=== PATIENT | female | born 1960 | race Caucasian/White ===

== ENCOUNTER 2016-10-24 12:30 | Emergency (ER) | payer OTHER ==
[~2016-10-24] VITALS: Ht 160 cm; Wt 83.0 kg
[~2016-10-24 12:30] MED LIST: ATIVAN1 M1 PO; BACTRIM1 TAB OR; CELEXA40 MG OR; EFFEXOR37.5 MG OR; FIBER CON625 MG OR; HYDROCO/APAP1 T13; LAMICTAL25 M2 PO; LEVOTHYROXIN50 MC1 PO; LISINOPRIL10 MG OR; LORTAB 10 OR; MIRALAX3350 NF OR; PREMARIN0.3 MG OR; PROVENTIL HFA IN; SEROQUEL200 MG OR; SEROQUEL400 MG OR; SEROQUEL400 MG PO; SIMVASTATIN20 MG OR; SIMVASTATIN40 MG PO; TRAZODONE HCL100 MG PO; VITAMIN C500 M1 OR; WELLBUTRIN SR150 M1 PO
[2016-10-24] MEDS ORDERED: REXULTI2 MG PO (12:48)
[2016-10-24] MEDS ORDERED: SENNA-TABS8.6 MG PO (12:49)
[2016-10-24] MEDS ORDERED: GABAPENTIN100 MG PO (12:49)
[2016-10-24] MEDS ORDERED: LISINOPRIL10 MG PO (12:49)
[2016-10-24] MEDS ORDERED: AMBIEN5 MG PO (12:50)
[2016-10-24] MEDS ORDERED: CYCLOBENZAPR10 MG PO (12:50)
[2016-10-24 14:36] VITALS: BP 148/69
== END 2016-10-24 14:47 | disposition home or self-care (01) | DRG 379 ==
LOC: ED 12:30
DX: K62.5 Hemorrhage of anus and rectum (principal); Z98.890 Other specified postprocedural states

== ENCOUNTER 2016-12-15 06:16 | Day surgery (SDC) | payer OTHER ==
[~2016-12-15] VITALS: Ht 160 cm; Wt 83.9 kg
[~2016-12-15 06:16] MED LIST changes: +AMBIEN5 MG PO; +CYCLOBENZAPR10 MG PO; +GABAPENTIN100 MG PO; +HYDROCODONE/ACE1 TAB PO; +LISINOPRIL10 MG PO; +OMEPRAZOLE20 M2 PO; +REXULTI2 MG PO; +SENNA-TABS8.6 MG PO; +VITAMIN B-12500 MCG PO
[2016-12-15] MEDS ORDERED: HYDROCODONE/ACE1 TAB PO (08:43)
[2016-12-15 11:20] VITALS: BP 122/64
== END 2016-12-15 08:55 | disposition home or self-care (01) | DRG 552 ==
LOC: ORM 06:16
PROVIDERS: ATTEND Anesthesiology Pain Medicine
PROC: 3E0T3BZ Introduction of Anesthetic Agent into Peripheral Nerves and Plexi, Percutaneous Approach (ICD-10-PCS; principal; 2016-12-15)
PROC: 3E0T33Z Introduction of Anti-inflammatory into Peripheral Nerves and Plexi, Percutaneous Approach (ICD-10-PCS; 2016-12-15)
DX: M54.2 Cervicalgia (principal); M12.9 Arthropathy, unspecified; M54.12 Radiculopathy, cervical region; M79.601 Pain in right arm; M79.602 Pain in left arm

== ENCOUNTER 2017-03-26 15:24 | Emergency (ER) | payer MEDICAID ==
[~2017-03-26] VITALS: Ht 160 cm; Wt 84.0 kg
[2017-03-26] MEDS ORDERED: LISINOP/HCTZ1 TAB PO (15:56)
[2017-03-26] MEDS ORDERED: HYDROCO/APAP1 TA9 PO (15:58)
[2017-03-26] MEDS ORDERED: VALTREX1 GM PO (16:05)
[2017-03-26 16:10] VITALS: BP 155/84
== END 2017-03-26 16:16 | disposition home or self-care (01) | DRG 607 ==
LOC: ED 15:24
DX: R21 Rash and other nonspecific skin eruption (principal); M25.572 Pain in left ankle and joints of left foot

== ENCOUNTER 2017-09-05 20:37 | Emergency (ER) | payer MEDICAID ==
[~2017-09-05] VITALS: Ht 160 cm; Wt 92.2 kg
[~2017-09-05 20:37] MED LIST changes: +HYDROCO/APAP1 TA9 PO; +LISINOP/HCTZ1 TAB PO; +VALTREX1 GM PO
[2017-09-05 21:49] LABS: URINE BILIRUBIN - DIPSTICK NEGATIVE (NEGATIVE); URINE BLOOD DIPSTICK TRACE-INTACT (NEGATIVE); URINE COLOR YELLOW; URINE GLUCOSE - DIPSTICK NEGATIVE (NEGATIVE); URINE KETONE NEGATIVE (NEGATIVE); URINE LEUK ESTERASE NEGATIVE (NEGATIVE); URINE NITRITE - DIPSTICK NEGATIVE (Negative); URINE PH 5.5 (4.5-8.0); URINE PROTEIN - DIPSTICK NEGATIVE (NEG-TRACE); URINE SPECIFIC GRAVITY >=1.030; URINE UROBILINOGEN - DIPSTICK 0.2 E.U./dL (0.2)
[2017-09-05 21:50] LABS: URINE CLARITY CLEAR
[2017-09-05 22:26] LABS: HEMATOCRIT 38.5 % (37.0-47.0); HEMOGLOBIN 12.4 g/dl (12.0-16.0); IMMATURE GRANULOCYTES 0.3 % (0.0-1.0); MEAN CELL VOLUME 94.4 fL CALC (80.0-100.0); MEAN CORPUSCULAR HGB 30.4 pG CALC (26.0-32.0); MEAN CORPUSCULAR HGB CONC 32.2 g/L CALC (32.0-36.0); NEUT# 7.65 thou/uL (2.00-7.15); RED BLOOD COUNT 4.08 mill/uL (4.20-5.60); RED CELL DISTRI WIDTH 14.2 % (11.5-15.5)
[2017-09-05 22:53] LABS: ALBUMIN 4.2 g/dL (3.2-5.0); ALKALINE PHOSPHATASE 100 u/l (38-126); AMYLASE 45 u/l (30-110); BILIRUBIN, TOTAL 0.3 mg/dL (0.0-1.4); BUN 14 mg/dL (7-17); BUN/CREATININE RATIO 18 (12-20 (CALC)); CARBON DIOXIDE 25 mmol/l (22-30); CHLORIDE 107 mmol/l (95-108); CREATININE 0.8 mg/dL (0.5-1.0); GFR > 60 ML/MIN (>=60 (CALC)); GFR FOR AFR.AMER. > 60 ML/MIN (>=60 (CALC)); LIPASE 46 u/l (23-300); POTASSIUM 3.7 mmol/l (3.5-5.1); SGOT/AST 36 u/l (14-36); SGPT/ALT 59 u/l (9-52); TOTAL PROTEIN 7.5 g/dL (6.3-8.2)
[2017-09-05 23:06] LABS: ANION GAP 17 (6-22 (CALC)); SODIUM 145 mmol/l (137-146)
[2017-09-05] MEDS ORDERED: TORADOL PO (23:15)
[2017-09-05 23:42] VITALS: BP 149/81
== END 2017-09-05 23:43 | disposition home or self-care (01) | DRG 206 ==
LOC: ED 20:37
PROVIDERS: Family Medicine
DX: M94.0 Chondrocostal junction syndrome [Tietze] (principal); F17.210 Nicotine dependence, cigarettes, uncomplicated; I10 Essential (primary) hypertension; R10.12 Left upper quadrant pain

== ENCOUNTER 2018-03-20 11:55 | Emergency (ER) | payer MEDICAID ==
[~2018-03-20] VITALS: Ht 160 cm; Wt 91.0 kg
[~2018-03-20 11:55] MED LIST changes: +TORADOL PO
[2018-03-20 13:07] VITALS: BP 155/93
== END 2018-03-20 13:16 | disposition home or self-care (01) ==
LOC: ED 11:55
DX: B34.9 Viral infection, unspecified (principal); I10 Essential (primary) hypertension; F32.9 Major depressive disorder, single episode, unspecified; E07.9 Disorder of thyroid, unspecified; G89.29 Other chronic pain; M54.2 Cervicalgia; F17.210 Nicotine dependence, cigarettes, uncomplicated; R05 Cough; R09.81 Nasal congestion; R06.7 Sneezing; R49.1 Aphonia

== ENCOUNTER 2018-05-16 15:44 | Emergency (ER) | payer MEDICAID ==
[~2018-05-16] VITALS: Ht 160 cm; Wt 90.0 kg
[~2018-05-16 15:44] MED LIST changes: -SEROQUEL400 MG OR
[2018-05-16 18:19] LABS: HEMATOCRIT 40.4 % (37.0-47.0); IMMATURE GRANULOCYTES 0.4 % (0.0-5.0); MEAN CELL VOLUME 97.1 fL CALC (80.0-100.0); MEAN CORPUSCULAR HGB 31.3 pG CALC (26.0-32.0); MEAN CORPUSCULAR HGB CONC 32.2 g/L CALC (32.0-36.0); NEUT# 6.26 thou/uL (2.00-7.15); RED BLOOD COUNT 4.16 mill/uL (4.20-5.60); RED CELL DISTRI WIDTH 14.2 % (11.5-15.5)
[2018-05-16 18:30] LABS: ANION GAP 14 (6-22 (CALC)); BUN 11 mg/dL (7-17); BUN/CREATININE RATIO 19 (12-20 (CALC)); CARBON DIOXIDE 28 mmol/l (22-30); CHLORIDE 104 mmol/l (95-108); CREATININE 0.6 mg/dL (0.5-1.0); GFR > 60 ML/MIN (>=60 (CALC)); GFR FOR AFR.AMER. > 60 ML/MIN (>=60 (CALC)); POTASSIUM 3.5 mmol/l (3.5-5.1); SODIUM 142 mmol/l (137-146)
[2018-05-16] MEDS ORDERED: SEROQUEL XR200 MG PO (19:01)
[2018-05-16 22:00] VITALS: BP 145/60
== END 2018-05-16 22:05 ==
LOC: ED 15:44
PROVIDERS: Family Medicine
DX: G97.1 Other reaction to spinal and lumbar puncture (principal); I10 Essential (primary) hypertension; F32.9 Major depressive disorder, single episode, unspecified; G89.29 Other chronic pain; M54.2 Cervicalgia; F17.210 Nicotine dependence, cigarettes, uncomplicated; Y84.4 Aspiration of fluid as the cause of abnormal reaction of the patient, or of later complication, without mention of misadventure at the time of the procedure
CPT/HCPCS: J0131

== ENCOUNTER 2018-07-01 14:19 | Emergency (ER) | payer MEDICAID ==
[~2018-07-01] VITALS: Ht 160 cm; Wt 92.0 kg
[~2018-07-01 14:19] MED LIST changes: +SEROQUEL XR200 MG PO
[2018-07-01] MEDS ORDERED: HYDROCO/APAP1 T13 PO (14:39)
[2018-07-01 15:39] LABS: HEMATOCRIT 43.3 % (37.0-47.0); HEMOGLOBIN 13.7 g/dl (12.0-16.0); IMMATURE GRANULOCYTES 0.2 % (0.0-5.0); MEAN CORPUSCULAR HGB CONC 31.6 g/L CALC (32.0-36.0); NEUT# 6.18 thou/uL (2.00-7.15); RED BLOOD COUNT 4.42 mill/uL (4.20-5.60); RED CELL DISTRI WIDTH 13.9 % (11.5-15.5)
[2018-07-01 16:31] LABS: ALBUMIN 4.1 g/dL (3.2-5.0); ALKALINE PHOSPHATASE 93 u/l (38-126); ANION GAP 14 (6-22 (CALC)); BILIRUBIN, TOTAL 0.4 mg/dL (0.0-1.4); BUN 17 mg/dL (7-17); BUN/CREATININE RATIO 31 (12-20 (CALC)); CARBON DIOXIDE 24 mmol/l (22-30); CHLORIDE 103 mmol/l (95-108); CREATININE 0.6 mg/dL (0.5-1.0); GFR > 60 ML/MIN (>=60 (CALC)); GFR FOR AFR.AMER. > 60 ML/MIN (>=60 (CALC)); POTASSIUM 4.1 mmol/l (3.5-5.1); SGOT/AST 28 u/l (14-36); SODIUM 137 mmol/l (137-146); TOTAL PROTEIN 6.8 g/dL (6.3-8.2)
[2018-07-01] MEDS ORDERED: DECADRON2 MG PO (17:53)
[2018-07-01] MEDS ORDERED: VICODIN HP1 TA1 PO (17:53)
[2018-07-01 17:56] VITALS: BP 144/76
== END 2018-07-01 18:14 | disposition home or self-care (01) ==
LOC: ED 14:19
PROVIDERS: Emergency Medicine
DX: G89.18 Other acute postprocedural pain (principal); M54.2 Cervicalgia; M79.602 Pain in left arm; M79.601 Pain in right arm; I10 Essential (primary) hypertension; F32.9 Major depressive disorder, single episode, unspecified; F17.210 Nicotine dependence, cigarettes, uncomplicated
CPT/HCPCS: Q9967

== ENCOUNTER → 2018-07-10 | Outpatient (REF) | payer MEDICAID ==
[~2018-07-10] MED LIST changes: +DECADRON2 MG PO; +HYDROCO/APAP1 T13 PO; +VICODIN HP1 TA1 PO
== END | disposition home or self-care (01) ==
LOC: DI 11:38
PROVIDERS: ATTEND Neurological Surgery
DX: M54.12 Radiculopathy, cervical region (principal)

== ENCOUNTER 2018-11-28 11:51 | Emergency (ER) | payer MEDICARE, OTHER ==
[~2018-11-28] VITALS: Ht 160 cm; Wt 87.3 kg
[2018-11-28 13:11] VITALS: BP 132/69
== END 2018-11-28 13:11 | disposition home or self-care (01) ==
LOC: ED 11:51
DX: S93.402A Sprain of unspecified ligament of left ankle, initial encounter (principal); I10 Essential (primary) hypertension; F17.200 Nicotine dependence, unspecified, uncomplicated; X50.0XXA Overexertion from strenuous movement or load, initial encounter; Y93.89 Activity, other specified

== ENCOUNTER 2019-01-13 19:54 | Emergency (ER) | payer MEDICARE ==
[~2019-01-13] VITALS: Ht 160 cm; Wt 86.0 kg
[2019-01-13] MEDS ORDERED: GENTAMICIN0.3 % OS (22:07)
[2019-01-13 23:00] VITALS: BP 162/72
== END 2019-01-13 23:00 | disposition home or self-care (01) ==
LOC: ED 19:54
DX: H10.9 Unspecified conjunctivitis (principal); H57.12 Ocular pain, left eye; I10 Essential (primary) hypertension; F17.210 Nicotine dependence, cigarettes, uncomplicated

== ENCOUNTER 2019-01-15 07:37 | Emergency (ER) | payer MEDICARE ==
[~2019-01-15] VITALS: Ht 160 cm; Wt 80.0 kg
[~2019-01-15 07:37] MED LIST changes: +GENTAMICIN0.3 % OS
[2019-01-15] MEDS ORDERED: (None)3.5 GM OU ×2 (08:04)
[2019-01-15 08:09] VITALS: BP 128/63
== END 2019-01-15 08:07 | disposition home or self-care (01) ==
LOC: ED 07:37
DX: H10.9 Unspecified conjunctivitis (principal); T15.92XA Foreign body on external eye, part unspecified, left eye, initial encounter; I10 Essential (primary) hypertension; F17.200 Nicotine dependence, unspecified, uncomplicated; X58.XXXA Exposure to other specified factors, initial encounter

== ENCOUNTER 2020-11-13 22:48 | Emergency (ER) | payer MEDICARE ==
[~2020-11-13] VITALS: Ht 160 cm; Wt 85.0 kg
[~2020-11-13 22:48] MED LIST changes: +(None)3.5 GM OU; +ALBUTEROL SUL0.083 % IN; +B121000 MC1 PO; +CLARITIN-D1 TA2 PO; +CROMOLYN S5.2 MG/ACT; +D3 HIGH POT5000 UNIT; +DEXAMETHASON2 MG PO; +DIAZEPAM5 MG PO; +ESCITALOPRAM OXA5 MG PO; +FLUOXETINE20 MG PO; +LEVOCETIRIZINE D5 MG PO; +MONTELUKAST SOD10 MG PO; +OMEPRAZOLE20 MG PO; +OXYCODO-APAP1 TA2 PO; +PERCOCET 10/31 COMBO PO; +PRAVASTATIN SOD20 MG PO; +PREGABALIN50 MG PO; +SPIRONOLACT25 MG PO; +VITAMIN C1000 MG PO; +VITAMIN D3400 UNI2 PO; +ZINC30 M2 PO; +ZINC50 M1 PO; +ZOFRAN4 M1 PO; +ZOLPIDEM ER12.5 MG PO
[2020-11-14 00:29] LABS: HEMATOCRIT 42.6 % (37.0-47.0); HEMOGLOBIN 13.7 g/dl (12.0-16.0); IMMATURE GRANULOCYTES 0.1 % (0.0-5.0); MEAN CELL VOLUME 90.8 fL CALC (80.0-100.0); MEAN CORPUSCULAR HGB 29.2 pG CALC (26.0-32.0); MEAN CORPUSCULAR HGB CONC 32.2 g/dL CAL (32.0-36.0); NEUT# 8.48 thou/uL (2.00-7.15); RED BLOOD COUNT 4.69 mill/uL (4.20-5.60); RED CELL DISTRI WIDTH 12.9 % (11.5-15.5)
[2020-11-14 00:41] LABS: ALBUMIN 4.2 g/dL (3.2-5.0); ALKALINE PHOSPHATASE 92 u/l (38-126); BUN 19 mg/dL (7-17); BUN/CREATININE RATIO 31 (12-20 (CALC)); CHLORIDE 105 mmol/l (95-108); CREATININE 0.6 mg/dL (0.5-1.0); ETHYL ALCOHOL 0 mg/dl (0-30); GFR > 60 ML/MIN (>=60 (CALC)); GFR FOR AFR.AMER. > 60 ML/MIN (>=60 (CALC)); POTASSIUM 4.1 mmol/l (3.5-5.1); SGOT/AST 19 u/l (14-36); SODIUM 138 mmol/l (137-146); TOTAL PROTEIN 7.8 g/dL (6.3-8.2)
[2020-11-14 00:49] LABS: URINE BILIRUBIN - DIPSTICK NEGATIVE (NEGATIVE); URINE BLOOD DIPSTICK TRACE-INTACT (NEGATIVE); URINE COLOR YELLOW; URINE GLUCOSE - DIPSTICK NEGATIVE (NEGATIVE); URINE KETONE NEGATIVE (NEGATIVE); URINE LEUK ESTERASE NEGATIVE (NEGATIVE); URINE NITRITE - DIPSTICK NEGATIVE (Negative); URINE PROTEIN - DIPSTICK TRACE mg/dL (NEG-TRACE); URINE SPECIFIC GRAVITY 1.025; URINE UROBILINOGEN - DIPSTICK 0.2 E.U./dL (0.2)
[2020-11-14 00:55] LABS: ANION GAP 14 (6-22 (CALC)); BILIRUBIN, TOTAL 0.2 mg/dL (0.0-1.4); CARBON DIOXIDE 23 mmol/l (22-30)
[2020-11-14 01:37] VITALS: BP 169/73
== END 2020-11-14 01:42 | disposition designated cancer center or children's hospital (05) ==
LOC: ED 22:48
PROVIDERS: Emergency Medicine
DX: F32.9 Major depressive disorder, single episode, unspecified (principal); I10 Essential (primary) hypertension; F17.200 Nicotine dependence, unspecified, uncomplicated; Z91.5 Personal history of self-harm; Z73.3 Stress, not elsewhere classified

== ENCOUNTER 2021-05-23 11:32 | Emergency (ER) | payer MEDICARE ==
[~2021-05-23] VITALS: Ht 160 cm; Wt 82.0 kg
[2021-05-23] MEDS ORDERED: TESSALON PERLE100 MG PO (13:09)
[2021-05-23] MEDS ORDERED: ZPAK PO (13:09)
[2021-05-23 14:13] VITALS: BP 206/81
== END 2021-05-23 14:14 | disposition home or self-care (01) ==
LOC: ED 11:32
DX: U07.1 COVID-19 (principal); J40 Bronchitis, not specified as acute or chronic; I10 Essential (primary) hypertension; F17.210 Nicotine dependence, cigarettes, uncomplicated

== ENCOUNTER 2021-07-14 09:50 | Day surgery (SDC) | payer MEDICARE ==
[~2021-07-14] VITALS: Ht 160 cm; Wt 80.3 kg
[~2021-07-14 09:50] MED LIST changes: +ALBUTEROL1.25 MG/3; +ALLERGY RELF10 M3 PO; +AMBIEN CR12.5 MG PO; +BUSPIRONE5 MG PO; +CALCIUM500 M5 PO; +EUTHYROX50 MCG; +FLONASE AL50 MCG/ACT; +IS-ZC 50 50 MG1 TAB PO; +KETOCONAZOLE21 EX; +LEXAPRO10 MG PO; +MELOXICAM15 MG PO; +NORVASC5 M1 PO; +OMEPRAZOLE DR20 MG PO; +TESSALON PERLE100 MG PO; +VITAMIN C500 MG PO; +ZPAK PO; +ZYRTEC10 M3 PO; +[UNRECOGNIZED DRUG - OTHER] PO
[2021-07-14] MEDS ORDERED: PERCOCET 5/321 COMBO PO (12:13)
[2021-07-14 13:43] VITALS: BP 165/70
== END 2021-07-14 13:45 | disposition home or self-care (01) ==
LOC: ENDO 09:50
PROVIDERS: ATTEND Surgery
PROC: 0DJD8ZZ Inspection of Lower Intestinal Tract, Via Natural or Artificial Opening Endoscopic (ICD-10-PCS; principal; 2021-07-14)
PROC: 0DJ08ZZ Inspection of Upper Intestinal Tract, Via Natural or Artificial Opening Endoscopic (ICD-10-PCS; 2021-07-14)
PROC: 06BY3ZC Excision of Hemorrhoidal Plexus, Percutaneous Approach (ICD-10-PCS; 2021-07-14)
PROC: 0DBQXZZ Excision of Anus, External Approach (ICD-10-PCS; 2021-07-14)
DX: K64.8 Other hemorrhoids (principal); K64.4 Residual hemorrhoidal skin tags; K57.30 Diverticulosis of large intestine without perforation or abscess without bleeding; K44.9 Diaphragmatic hernia without obstruction or gangrene; I10 Essential (primary) hypertension; J43.9 Emphysema, unspecified
CPT/HCPCS: C9290

== ENCOUNTER 2021-07-16 10:52 | Emergency (ER) | payer MEDICARE ==
[~2021-07-16] VITALS: Ht 160 cm; Wt 77.0 kg
[~2021-07-16 10:52] MED LIST changes: +PERCOCET 5/321 COMBO PO
[2021-07-16] MEDS ORDERED: ALBUTEROL SUL0.083 % IN (14:21)
[2021-07-16] MEDS ORDERED: FLONASE AL50 MCG/ACT IN (14:24)
[2021-07-16] MEDS ORDERED: TESSALON PERLE100 MG PO (18:05)
[2021-07-16] MEDS ORDERED: PREDNISONE50 MG PO (18:05)
[2021-07-16 18:13] VITALS: BP 158/74
== END 2021-07-16 18:30 | disposition home or self-care (01) ==
LOC: ED 10:52
DX: J06.9 Acute upper respiratory infection, unspecified (principal); I10 Essential (primary) hypertension; F17.210 Nicotine dependence, cigarettes, uncomplicated; Z86.16 Personal history of COVID-19; Z20.822 Contact with and (suspected) exposure to COVID-19

== ENCOUNTER 2021-09-04 10:25 | Emergency (ER) | payer MEDICARE ==
[2021-09-04] VITALS (10 sets, daily range): BP systolic 124–158; BP diastolic 62–113
[~2021-09-04] VITALS: Ht 160 cm; Wt 81.0 kg
[~2021-09-04 10:25] MED LIST changes: +FLONASE AL50 MCG/ACT IN; +PREDNISONE50 MG PO
[2021-09-04 11:18] LABS: HEMATOCRIT 39.1 % (37.0-47.0); HEMOGLOBIN 12.4 g/dl (12.0-16.0); IMMATURE GRANULOCYTES 0.2 % (0.0-5.0); MEAN CELL VOLUME 95.4 fL CALC (80.0-100.0); MEAN CORPUSCULAR HGB 30.2 pG CALC (26.0-32.0); MEAN CORPUSCULAR HGB CONC 31.7 g/dL CAL (32.0-36.0); NEUT# 10.25 thou/uL (2.00-7.15); RED BLOOD COUNT 4.1 mill/uL (4.20-5.60); RED CELL DISTRI WIDTH 13.2 % (11.5-15.5)
[2021-09-04] MEDS ORDERED: AMOX/K CLAV875 M1 PO (11:37)
[2021-09-04 11:44] LABS: ALKALINE PHOSPHATASE 100 u/l (38-126); ANION GAP 15 (6-22 (CALC)); BUN 11 mg/dL (7-17); BUN/CREATININE RATIO 22 (12-20 (CALC)); CARBON DIOXIDE 22 mmol/l (22-30); CHLORIDE 108 mmol/l (95-108); CREATININE 0.5 mg/dL (0.5-1.0); GFR > 60 ML/MIN (>=60 (CALC)); GFR FOR AFR.AMER. > 60 ML/MIN (>=60 (CALC)); POTASSIUM 4.6 mmol/l (3.5-5.1); SGOT/AST 28 u/l (14-36); SODIUM 140 mmol/l (137-146); TOTAL PROTEIN 7.2 g/dL (6.3-8.2)
[2021-09-04] MEDS ORDERED: BUSPAR5 MG PO (11:44)
[2021-09-04] MEDS ORDERED: PREDNISONE50 MG PO (12:06)
[2021-09-04] MEDS ORDERED: ZPAK PO ×2 (12:06→14:19)
[2021-09-05] MEDS ORDERED: VENTOLIN HFA IN (09:27)
[2021-09-05] MEDS ORDERED: PERCOCET 5/321 COMBO PO (09:29)
[2021-09-05] MEDS ORDERED: DOCUSATE CAL240 MG PO (09:33)
[2021-09-08] MEDS ORDERED: PREDNISONE10 MG PO (09:10)
[2021-09-08] MEDS ORDERED: LEVAQUIN750 M1 PO (09:10)
[2021-09-08] MEDS ORDERED: ROBITUSSIN AC10 ML PO (09:11)
== END 2021-09-04 15:05 | disposition left against medical advice (07) ==
LOC: ED 10:25
PROVIDERS: Family Medicine
DX: J18.9 Pneumonia, unspecified organism (principal); I10 Essential (primary) hypertension; E66.9 Obesity, unspecified; F17.210 Nicotine dependence, cigarettes, uncomplicated; Z91.19 Patient's noncompliance with other medical treatment and regimen; Z20.822 Contact with and (suspected) exposure to COVID-19
CPT/HCPCS: Q9967

== ENCOUNTER 2021-10-08 06:58 | Observation (INO) | payer MEDICARE ==
[~2021-10-08] VITALS: Ht 160 cm; Wt 78.0 kg
[2021-10-08] VITALS (7 sets, daily range): BP systolic 114–136; BP diastolic 53–84
[~2021-10-08 06:58] MED LIST changes: +AIRBORNE IMMUNE PO; +ALIVE WOMENS 501 CHW PO; +AMOX/K CLAV875 M1 PO; +BUSPAR5 MG PO; +DOCUSATE CAL240 MG PO; +LEVAQUIN750 M1 PO; +PREDNISONE10 MG PO; +ROBITUSSIN AC10 ML PO; +VENTOLIN HFA IN; +ZINC50 MG PO
[2021-10-08] MEDS ORDERED: SPIRIVA HANDIHALER IN (07:31)
--- NOTE | 2021-10-08 11:55 | NUR ---
RECEIVE REPORT FROM JANES OR NURSE. PATIENT POST LAPAROSCOPY HERNIA REPAIR PROCEDURE. PATIENT ALERT AND ORIENTED X3. WITH OXIGEN 2L NASAL CANNULA. PATIENT RECEIVE PAIN MEDICATIONS BEFORE COME BE HERE. 11:00 AM. PATIENT WITH SURGICAL AREA CLEAN NO BLEDDING AT THIS TIME. PATIENT IS EDUCATED ABIUD MEDICATIONS, ADMISSION AND NURSING PLAN FOR TODAY. PATIENT REFER UNDERSTAND. OR ORDERS IS DONE.
--- NOTE | 2021-10-08 20:00 | NUR ---
PT IN BED AWAKE, GOT UP TO USE THE BEDSIDE COMMODE, WENT BACK TO BED, IN BED RESTING, NO DISTRESS NOTED, SOME PAIN WITH MOVEMENT, BED IN LOW POSITION, CALL LIGHT IN REACH
--- NOTE | 2021-10-09 01:34 | NUR ---
PT IN BED RESTING, PT WAS UP WALKING THE HALLS WITH NURSE USING A WALKER TO HELP WITH GAS PAINS, PT STATES SHE IS HAVING PAIN WAS GIVEN MORPHINE, PT NOW IN BED RESTING, BED IN LOW POSITION, CALL LIGHT IN REACH, PT STATES SHE DID PASS SOME GAS, USED BEDSIDE COMMODE WHILE UP.
[2021-10-09 03:54] VITALS: BP 124/44
--- NOTE | 2021-10-09 05:44 | NUR ---
pt in bed awake, pt still having gas pains, but is passing gas, no bm overnight, pt is voiding, bed in low position, call light in reach
--- NOTE | 2021-10-09 07:00 | NUR ---
RECEIVE REPORT FROM HILDA STEIN.
[2021-10-09 07:14] VITALS: BP 121/54
--- NOTE | 2021-10-09 08:00 | NUR ---
PATIENT ALERT AND ORIENTED X3. PATIENT RESTING IN BED REFER PAIN AT THIS TIME. MEDICATION FOR PAIN DONE. PATIENT IS EDUCATED ABOUD MEDICATIONS, DIET AND NURSING PLAN FOR TODAY. PATIENT REFER UNDERSTAND.
[2021-10-09 10:56] VITALS: BP 115/53
--- NOTE | 2021-10-09 12:00 | NUR ---
PATIENT RESTING IN THE CHAIR. STABLE AT THIS TIME.
[2021-10-09 19:00] VITALS: BP 124/45
[2021-10-09 19:41] VITALS: BP 124/45
--- NOTE | 2021-10-09 21:41 | NUR ---
PT WAS IN CHAIR AT START OF SHIFT, ASKED TO GET A SHOWER, PT NOW IN BED RESTING, NO DISTRESS NOTED, GAVE PT COLASE TO HELP WITH BM, BED IN LOW POSITION, CALL LIGHT IN REACH
--- NOTE | 2021-10-10 01:14 | NUR ---
PT IN BED ASLEEP, NO DISTRESS NOTED, CALL LIGHT IN REACH, BED IN LOW POSITION
[2021-10-10 04:00] VITALS: BP 121/47
[2021-10-10 04:31] VITALS: BP 121/47
--- NOTE | 2021-10-10 04:33 | NUR ---
PT IN BED RESTING, JUST WAS UP TO BSC, NO DISTRESS NOTED, PT BACK TO BED NO DISTRESS NOTED, BED IN LOW POSITION, CALL LIGHT IN REACH
[2021-10-10 06:25] VITALS: BP 120/51
[2021-10-10 08:55] VITALS: BP 120/51
--- NOTE | 2021-10-10 08:56 | NUR ---
PT SITTING IN RECLINER, NO SIGNS OF DISTRESS NOTED, RESP EVEN AND UNLABORED. PT ALERT AND ORIENTED X3, PT C/O PAIN MEDICATED PER MAR, DISCUSSED POC, PT VERBALIZED UNDERSTANDING. INCISION TO ABD X5 CDI, DERMABOND. ASSESSMENT COMPLETED, CALL LIGHT IN REACH,CONTINUE TO MONITOR.
--- NOTE | 2021-10-10 10:45 | NUR ---
DISCUSSED DICHARGE INSTRUCTIONS,PT VERBALIZED UNDERSTANDING. IV SITE REMOVED, CATHETER INTACT, PT TOLERATED WELL. SECURED WITH BANDAGE, AWAITING HER RIDE. CALL LIGHT IN REACH,CONTINUE TO MONITOR.
--- NOTE | 2021-10-10 10:59 | NUR ---
Discharge instructions given. Patient verbalizes understanding of same. Discharged in stable condition via Wheelchair to Home with friend. All belongings sent with pt.
== END 2021-10-10 10:59 | disposition home or self-care (01) ==
LOC: ORM 06:58 → MS2 12:00
PROVIDERS: ADMIT Surgery; ATTEND Surgery
PROC: 0WUF4JZ Supplement Abdominal Wall with Synthetic Substitute, Percutaneous Endoscopic Approach (ICD-10-PCS; principal; 2021-10-08)
DX: K43.2 Incisional hernia without obstruction or gangrene (principal); K66.0 Peritoneal adhesions (postprocedural) (postinfection); I10 Essential (primary) hypertension; J44.9 Chronic obstructive pulmonary disease, unspecified; F41.9 Anxiety disorder, unspecified; F32.A Depression, unspecified
CPT/HCPCS: J0131; J1650

== ENCOUNTER 2021-11-01 05:27 | Observation (INO) | payer MEDICARE ==
[~2021-11-01] VITALS: Ht 160 cm; Wt 79.0 kg
[2021-11-01] VITALS (12 sets, daily range): BP systolic 129–186; BP diastolic 39–87
[~2021-11-01 05:27] MED LIST changes: +SPIRIVA HANDIHALER IN
[2021-11-01 05:49] LABS: HEMATOCRIT 40.9 % (37.0-47.0); HEMOGLOBIN 12.9 g/dl (12.0-16.0); IMMATURE GRANULOCYTES 0.1 % (0.0-5.0); MEAN CELL VOLUME 93.8 fL CALC (80.0-100.0); MEAN CORPUSCULAR HGB 29.6 pG CALC (26.0-32.0); MEAN CORPUSCULAR HGB CONC 31.5 g/dL CAL (32.0-36.0); NEUT# 5.21 thou/uL (2.00-7.15); RED BLOOD COUNT 4.36 mill/uL (4.20-5.60)
[2021-11-01 06:11] LABS: ALBUMIN 4.2 g/dL (3.2-5.0); ALKALINE PHOSPHATASE 102 u/l (38-126); AMYLASE 67 u/l (30-110); ANION GAP 12 (6-22 (CALC)); BUN 11 mg/dL (7-17); BUN/CREATININE RATIO 18 (12-20 (CALC)); CARBON DIOXIDE 30 mmol/l (22-30); CHLORIDE 105 mmol/l (95-108); CREATININE 0.6 mg/dL (0.5-1.0); GFR FOR AFR.AMER. > 60 ML/MIN (>=60 (CALC)); GFR OTHER RACES > 60 ML/MIN (>=60 (CALC)); LIPASE 80 u/l (23-300); POTASSIUM 3.7 mmol/l (3.5-5.1); SGOT/AST 19 u/l (14-36); SODIUM 142 mmol/l (137-146); TOTAL PROTEIN 7.4 g/dL (6.3-8.2)
[2021-11-01 06:23] LABS: MYOGLOBIN 20 ng/mL (0 - 62)
[2021-11-01 06:34] LABS: BILIRUBIN, TOTAL 0.3 mg/dL (0.0-1.4)
[2021-11-01 07:58] LABS: URINE BILIRUBIN - DIPSTICK NEGATIVE (NEGATIVE); URINE BLOOD DIPSTICK NEGATIVE (NEGATIVE); URINE COLOR YELLOW; URINE GLUCOSE - DIPSTICK NEGATIVE (NEGATIVE); URINE KETONE NEGATIVE (NEGATIVE); URINE LEUK ESTERASE NEGATIVE (NEGATIVE); URINE PH 6.5 (4.5-8.0); URINE PROTEIN - DIPSTICK NEGATIVE (NEG-TRACE); URINE UROBILINOGEN - DIPSTICK 0.2 E.U./dL (0.2)
[2021-11-01 08:00] LABS: URINE NITRITE - DIPSTICK NEGATIVE (Negative)
[2021-11-02 00:36] VITALS: BP 127/42
[2021-11-02 03:39] VITALS: BP 149/47
[2021-11-02 05:53] LABS: HEMATOCRIT 40.4 % (37.0-47.0); HEMOGLOBIN 12.6 g/dl (12.0-16.0); MEAN CELL VOLUME 95.1 fL CALC (80.0-100.0); MEAN CORPUSCULAR HGB 29.6 pG CALC (26.0-32.0); MEAN CORPUSCULAR HGB CONC 31.2 g/dL CAL (32.0-36.0); RED BLOOD COUNT 4.25 mill/uL (4.20-5.60); RED CELL DISTRI WIDTH 14.1 % (11.5-15.5)
[2021-11-02 06:22] LABS: ANION GAP 13 (6-22 (CALC)); BUN 7 mg/dL (7-17); BUN/CREATININE RATIO 11 (12-20 (CALC)); CARBON DIOXIDE 24 mmol/l (22-30); CHLORIDE 104 mmol/l (95-108); CREATININE 0.6 mg/dL (0.5-1.0); GFR FOR AFR.AMER. > 60 ML/MIN (>=60 (CALC)); GFR OTHER RACES > 60 ML/MIN (>=60 (CALC)); POTASSIUM 3.8 mmol/l (3.5-5.1); SODIUM 137 mmol/l (137-146)
[2021-11-02 06:25] VITALS: BP 133/56
[2021-11-02 12:25] VITALS: BP 153/51
[2021-11-02 20:00] VITALS: BP 154/57
[2021-11-03] VITALS (14 sets, daily range): BP systolic 116–156; BP diastolic 45–75
[2021-11-03 09:09] LABS: HEMATOCRIT 40.8 % (37.0-47.0); HEMOGLOBIN 12.8 g/dl (12.0-16.0); IMMATURE GRANULOCYTES 0.2 % (0.0-5.0); MEAN CELL VOLUME 93.8 fL CALC (80.0-100.0); MEAN CORPUSCULAR HGB 29.4 pG CALC (26.0-32.0); MEAN CORPUSCULAR HGB CONC 31.4 g/dL CAL (32.0-36.0); RED BLOOD COUNT 4.35 mill/uL (4.20-5.60); RED CELL DISTRI WIDTH 13.8 % (11.5-15.5)
[2021-11-03 09:15] LABS: ALKALINE PHOSPHATASE 89 u/l (38-126); ANION GAP 10 (6-22 (CALC)); BUN 7 mg/dL (7-17); BUN/CREATININE RATIO 10 (12-20 (CALC)); CARBON DIOXIDE 26 mmol/l (22-30); CHLORIDE 106 mmol/l (95-108); CREATININE 0.7 mg/dL (0.5-1.0); GFR FOR AFR.AMER. > 60 ML/MIN (>=60 (CALC)); GFR OTHER RACES > 60 ML/MIN (>=60 (CALC)); MAGNESIUM 2.2 mg/dL (1.6-2.3); POTASSIUM 3.8 mmol/l (3.5-5.1); SGOT/AST 20 u/l (14-36); SODIUM 139 mmol/l (137-146); TOTAL PROTEIN 6.7 g/dL (6.3-8.2)
[2021-11-03 09:17] LABS: BILIRUBIN, TOTAL 0.8 mg/dL (0.0-1.4)
[2021-11-03] MEDS ORDERED: PERCOCET 5/321 COMBO PO (12:36)
== END 2021-11-03 17:55 | disposition home or self-care (01) ==
LOC: ED 05:27 → ED-I 09:50 → ED 10:02 → MS2 10:03
PROVIDERS: Emergency Medicine; Nurse Practitioner; ADMIT Hospitalist; ATTEND Hospitalist
PROC: 0FT44ZZ Resection of Gallbladder, Percutaneous Endoscopic Approach (ICD-10-PCS; principal; 2021-11-03)
PROC: BF001ZZ Plain Radiography of Bile Ducts using Low Osmolar Contrast (ICD-10-PCS; 2021-11-03)
DX: K80.12 Calculus of gallbladder with acute and chronic cholecystitis without obstruction (principal); I10 Essential (primary) hypertension; J43.9 Emphysema, unspecified; G62.9 Polyneuropathy, unspecified; E03.9 Hypothyroidism, unspecified; F41.9 Anxiety disorder, unspecified; F32.A Depression, unspecified; G47.30 Sleep apnea, unspecified; F17.210 Nicotine dependence, cigarettes, uncomplicated; Z98.890 Other specified postprocedural states; Z20.822 Contact with and (suspected) exposure to COVID-19
CPT/HCPCS: J0131; J1100; J1610; J1650; J2060; Q9967

== ENCOUNTER 2022-01-31 15:19 | Emergency (ER) | payer MEDICARE ==
[~2022-01-31] VITALS: Ht 160 cm; Wt 90.7 kg
[2022-01-31] VITALS (25 sets, daily range): BP systolic 126–179; BP diastolic 45–120
[2022-01-31 15:40] LABS: HEMATOCRIT 43.7 % (37.0-47.0); HEMOGLOBIN 14.2 g/dl (12.0-16.0); IMMATURE GRANULOCYTES 0.2 % (0.0-5.0); MEAN CELL VOLUME 89.5 fL CALC (80.0-100.0); MEAN CORPUSCULAR HGB 29.1 pG CALC (26.0-32.0); MEAN CORPUSCULAR HGB CONC 32.5 g/dL CAL (32.0-36.0); NEUT# 7.37 thou/uL (2.00-7.15); RED BLOOD COUNT 4.88 mill/uL (4.20-5.60); RED CELL DISTRI WIDTH 13.4 % (11.5-15.5)
[2022-01-31 15:53] LABS: ALBUMIN 4.5 g/dL (3.2-5.0); ALKALINE PHOSPHATASE 107 u/l (38-126); ANION GAP 15 (6-22 (CALC)); BILIRUBIN, TOTAL 0.9 mg/dL (0.0-1.4); BUN 12 mg/dL (7-17); BUN/CREATININE RATIO 22 (12-20 (CALC)); CARBON DIOXIDE 25 mmol/l (22-30); CHLORIDE 108 mmol/l (95-108); CREATININE 0.6 mg/dL (0.5-1.0); ETHYL ALCOHOL 0 mg/dl (0-30); GFR FOR AFR.AMER. > 60 ML/MIN (>=60 (CALC)); GFR OTHER RACES > 60 ML/MIN (>=60 (CALC)); POTASSIUM 4.2 mmol/l (3.5-5.1); SODIUM 143 mmol/l (137-146); TOTAL PROTEIN 7.9 g/dL (6.3-8.2)
[2022-01-31 15:55] LABS: SGOT/AST 38 u/l (14-36)
[2022-01-31 21:51] LABS: URINE BILIRUBIN - DIPSTICK NEGATIVE (NEGATIVE); URINE BLOOD DIPSTICK NEGATIVE (NEGATIVE); URINE COLOR YELLOW; URINE GLUCOSE - DIPSTICK NEGATIVE (NEGATIVE); URINE KETONE NEGATIVE (NEGATIVE); URINE LEUK ESTERASE NEGATIVE (NEGATIVE); URINE PH 6.5 (4.5-8.0); URINE PROTEIN - DIPSTICK NEGATIVE (NEG-TRACE); URINE UROBILINOGEN - DIPSTICK 0.2 E.U./dL (0.2)
[2022-01-31 21:52] LABS: URINE NITRITE - DIPSTICK NEGATIVE (Negative)
[2022-02-01] VITALS (19 sets, daily range): BP systolic 140–182; BP diastolic 57–82
== END 2022-02-01 07:13 ==
LOC: ED 15:19
PROVIDERS: Family Medicine
PROC: 0HQEXZZ Repair Left Lower Arm Skin, External Approach (ICD-10-PCS; principal; 2022-01-31)
DX: S61.512A Laceration without foreign body of left wrist, initial encounter (principal); T42.6X2A Poisoning by other antiepileptic and sedative-hypnotic drugs, intentional self-harm, initial encounter; J44.9 Chronic obstructive pulmonary disease, unspecified; F41.9 Anxiety disorder, unspecified; F17.200 Nicotine dependence, unspecified, uncomplicated; X78.9XXA Intentional self-harm by unspecified sharp object, initial encounter; Z59.89 Other problems related to housing and economic circumstances; Z20.822 Contact with and (suspected) exposure to COVID-19

== ENCOUNTER 2022-03-06 22:38 | Emergency (ER) | payer MEDICARE ==
[~2022-03-06] VITALS: Ht 160 cm; Wt 79.5 kg
[2022-03-06 22:59] VITALS: BP 153/68
[2022-03-06 23:31] VITALS: BP 154/65
[2022-03-07] VITALS (8 sets, daily range): BP systolic 128–171; BP diastolic 71–100
[2022-03-07] MEDS ORDERED: ULTRAM50 M1 PO (00:13)
== END 2022-03-07 01:09 | disposition home or self-care (01) ==
LOC: ED 22:38
DX: S83.92XA Sprain of unspecified site of left knee, initial encounter (principal); I10 Essential (primary) hypertension; J44.9 Chronic obstructive pulmonary disease, unspecified; F41.9 Anxiety disorder, unspecified; F17.200 Nicotine dependence, unspecified, uncomplicated; W18.2XXA Fall in (into) shower or empty bathtub, initial encounter; Y93.E1 Activity, personal bathing and showering; Y92.002 Bathroom of unspecified non-institutional (private) residence as the place of occurrence of the external cause

== ENCOUNTER 2022-04-08 14:15 | Inpatient (IN) | payer MEDICARE ==
[2022-04-08] VITALS (8 sets, daily range): BP systolic 123–156; BP diastolic 45–100
[~2022-04-08] VITALS: Ht 160 cm; Wt 84.0 kg
[~2022-04-08 14:15] MED LIST changes: +ULTRAM50 M1 PO
[2022-04-08] MEDS ORDERED: MIRTAZAPINE15 MG PO (14:43)
[2022-04-08] MEDS ORDERED: CHLORTHALIDONE25 MG PO (14:44)
[2022-04-08] MEDS ORDERED: MELATONIN10 MG PO (14:45)
[2022-04-08 15:09] LABS: HEMATOCRIT 41.4 % (37.0-47.0); HEMOGLOBIN 13.4 g/dl (12.0-16.0); IMMATURE GRANULOCYTES 0.2 % (0.0-5.0); MEAN CELL VOLUME 91.2 fL CALC (80.0-100.0); MEAN CORPUSCULAR HGB 29.5 pG CALC (26.0-32.0); MEAN CORPUSCULAR HGB CONC 32.4 g/dL CAL (32.0-36.0); NEUT# 11.45 thou/uL (2.00-7.15); RED BLOOD COUNT 4.54 mill/uL (4.20-5.60); RED CELL DISTRI WIDTH 14.4 % (11.5-15.5)
[2022-04-08 15:23] LABS: ALBUMIN 4.6 g/dL (3.2-5.0); ALKALINE PHOSPHATASE 113 u/l (38-126); ANION GAP 11 (6-22 (CALC)); BILIRUBIN, TOTAL 0.5 mg/dL (0.0-1.4); BUN 20 mg/dL (7-17); BUN/CREATININE RATIO 23 (12-20 (CALC)); CARBON DIOXIDE 31 mmol/l (22-30); CHLORIDE 99 mmol/l (95-108); CREATININE 0.9 mg/dL (0.5-1.0); GFR FOR AFR.AMER. > 60 ML/MIN (>=60 (CALC)); GFR OTHER RACES > 60 ML/MIN (>=60 (CALC)); POTASSIUM 3.2 mmol/l (3.5-5.1); SGOT/AST 41 u/l (14-36); SODIUM 137 mmol/l (137-146); TOTAL PROTEIN 7.7 g/dL (6.3-8.2)
[2022-04-09 04:21] VITALS: BP 161/62
[2022-04-09 05:54] LABS: HEMATOCRIT 38.8 % (37.0-47.0); HEMOGLOBIN 12.7 g/dl (12.0-16.0); MEAN CELL VOLUME 91.3 fL CALC (80.0-100.0); MEAN CORPUSCULAR HGB 29.9 pG CALC (26.0-32.0); MEAN CORPUSCULAR HGB CONC 32.7 g/dL CAL (32.0-36.0); RED BLOOD COUNT 4.25 mill/uL (4.20-5.60); RED CELL DISTRI WIDTH 14.6 % (11.5-15.5)
[2022-04-09 06:20] LABS: ANION GAP 15 (6-22 (CALC)); BUN 16 mg/dL (7-17); BUN/CREATININE RATIO 25 (12-20 (CALC)); CARBON DIOXIDE 26 mmol/l (22-30); CHLORIDE 105 mmol/l (95-108); CREATININE 0.7 mg/dL (0.5-1.0); GFR FOR AFR.AMER. > 60 ML/MIN (>=60 (CALC)); GFR OTHER RACES > 60 ML/MIN (>=60 (CALC)); MAGNESIUM 2.7 mg/dL (1.6-2.3); POTASSIUM 3.7 mmol/l (3.5-5.1); SODIUM 142 mmol/l (137-146)
[2022-04-09 06:21] VITALS: BP 130/54
[2022-04-09 09:05] VITALS: BP 130/54
[2022-04-09 14:08] VITALS: BP 127/55
[2022-04-09 14:21] VITALS: BP 127/55
[2022-04-09 21:14] VITALS: BP 132/53
[2022-04-10 00:03] VITALS: BP 126/42
[2022-04-10 04:19] VITALS: BP 123/53
[2022-04-10 06:26] VITALS: BP 132/50
[2022-04-10 10:18] VITALS: BP 135/57
[2022-04-10 19:27] VITALS: BP 136/55
[2022-04-10 23:49] VITALS: BP 164/67
[2022-04-11 04:16] VITALS: BP 148/65
[2022-04-11 05:06] LABS: HEMATOCRIT 38.6 % (37.0-47.0); HEMOGLOBIN 12.2 g/dl (12.0-16.0); IMMATURE GRANULOCYTES 0.3 % (0.0-5.0); MEAN CELL VOLUME 92.8 fL CALC (80.0-100.0); MEAN CORPUSCULAR HGB 29.3 pG CALC (26.0-32.0); MEAN CORPUSCULAR HGB CONC 31.6 g/dL CAL (32.0-36.0); NEUT# 13.7 thou/uL (2.00-7.15); RED BLOOD COUNT 4.16 mill/uL (4.20-5.60); RED CELL DISTRI WIDTH 14.7 % (11.5-15.5)
[2022-04-11 05:08] LABS: BUN 19 mg/dL (7-17); BUN/CREATININE RATIO 29 (12-20 (CALC)); CHLORIDE 102 mmol/l (95-108); CREATININE 0.6 mg/dL (0.5-1.0); GFR FOR AFR.AMER. > 60 ML/MIN (>=60 (CALC)); GFR OTHER RACES > 60 ML/MIN (>=60 (CALC)); MAGNESIUM 2.6 mg/dL (1.6-2.3); POTASSIUM 4.1 mmol/l (3.5-5.1); SODIUM 140 mmol/l (137-146)
[2022-04-11 05:10] LABS: ANION GAP 10 (6-22 (CALC)); CARBON DIOXIDE 32 mmol/l (22-30)
[2022-04-11 06:41] VITALS: BP 141/58
[2022-04-11 11:14] VITALS: BP 122/53
[2022-04-11 15:39] VITALS: BP 147/59
[2022-04-11 18:52] VITALS: BP 118/63
[2022-04-11 23:53] VITALS: BP 156/56
[2022-04-12 04:41] VITALS: BP 149/58
[2022-04-12 06:06] VITALS: BP 143/49
[2022-04-12 10:11] VITALS: BP 121/38
[2022-04-12 15:14] VITALS: BP 112/50
[2022-04-12 19:15] VITALS: BP 109/45
[2022-04-13] VITALS (8 sets, daily range): BP systolic 105–129; BP diastolic 39–58
[2022-04-13 04:39] LABS: HEMATOCRIT 37.2 % (37.0-47.0); HEMOGLOBIN 11.8 g/dl (12.0-16.0); MEAN CELL VOLUME 92.3 fL CALC (80.0-100.0); MEAN CORPUSCULAR HGB 29.3 pG CALC (26.0-32.0); MEAN CORPUSCULAR HGB CONC 31.7 g/dL CAL (32.0-36.0); RED BLOOD COUNT 4.03 mill/uL (4.20-5.60); RED CELL DISTRI WIDTH 14.4 % (11.5-15.5)
[2022-04-13 04:50] LABS: ANION GAP 9 (6-22 (CALC)); BUN 22 mg/dL (7-17); BUN/CREATININE RATIO 27 (12-20 (CALC)); CARBON DIOXIDE 34 mmol/l (22-30); CHLORIDE 102 mmol/l (95-108); CREATININE 0.8 mg/dL (0.5-1.0); GFR FOR AFR.AMER. > 60 ML/MIN (>=60 (CALC)); GFR OTHER RACES > 60 ML/MIN (>=60 (CALC)); MAGNESIUM 2.5 mg/dL (1.6-2.3); POTASSIUM 3.4 mmol/l (3.5-5.1); SODIUM 142 mmol/l (137-146)
[2022-04-14 00:15] VITALS: BP 131/43
[2022-04-14 04:00] VITALS: BP 133/55
[2022-04-14 04:47] VITALS: BP 133/55
[2022-04-14 06:18] VITALS: BP 131/59
[2022-04-14 07:59] VITALS: BP 155/60
[2022-04-14 10:17] VITALS: BP 118/48
[2022-04-14] MEDS ORDERED: PREDNISONE10 MG PO (11:09)
[2022-04-14] MEDS ORDERED: VIBRAMYCIN100 M2 PO (11:10)
[2022-04-14] MEDS ORDERED: BIOTUSSIN PO (11:12)
[2022-04-14] MEDS ORDERED: NICODERM C21 MG/242 TD (11:20)
[2022-04-21] MEDS ORDERED: PREDNISONE (14:01)
== END 2022-04-14 14:00 | disposition home or self-care (01) | DRG 193 ==
LOC: ED 14:15 → ED-I 16:08 → ED 16:54 → MS2 16:55
PROVIDERS: Internal Medicine; Nurse Practitioner; ADMIT Internal Medicine; ATTEND Internal Medicine
DX: J18.9 Pneumonia, unspecified organism (principal); J96.01 Acute respiratory failure with hypoxia; J43.9 Emphysema, unspecified; I10 Essential (primary) hypertension; E78.00 Pure hypercholesterolemia, unspecified; K21.9 Gastro-esophageal reflux disease without esophagitis; G62.9 Polyneuropathy, unspecified; E03.9 Hypothyroidism, unspecified; F32.A Depression, unspecified; F41.9 Anxiety disorder, unspecified; G47.30 Sleep apnea, unspecified; F17.210 Nicotine dependence, cigarettes, uncomplicated; Z20.822 Contact with and (suspected) exposure to COVID-19
CPT/HCPCS: J1650; J3475

== ENCOUNTER 2022-05-04 12:18 | Emergency (ER) | payer MEDICARE ==
[~2022-05-04] VITALS: Ht 160 cm; Wt 88.2 kg
[2022-05-04] VITALS (8 sets, daily range): BP systolic 133–154; BP diastolic 64–130
[~2022-05-04 12:18] MED LIST changes: +BIOTUSSIN PO; +CHLORTHALIDONE25 MG PO; +MELATONIN10 MG PO; +MIRTAZAPINE15 MG PO; +NICODERM C21 MG/242 TD; +PREDNISONE; +VIBRAMYCIN100 M2 PO
[2022-05-04] MEDS ORDERED: CELEBREX100 M1 PO (15:39)
[2022-05-04] MEDS ORDERED: FLEXERIL5 M1 PO (15:39)
== END 2022-05-04 15:48 | disposition home or self-care (01) ==
LOC: ED 12:18
PROC: 3E023BZ Introduction of Anesthetic Agent into Muscle, Percutaneous Approach (ICD-10-PCS; principal; 2022-05-04)
DX: M79.18 Myalgia, other site (principal); I10 Essential (primary) hypertension; J44.9 Chronic obstructive pulmonary disease, unspecified; F41.9 Anxiety disorder, unspecified; F17.200 Nicotine dependence, unspecified, uncomplicated

== ENCOUNTER 2022-10-06 14:20 | Observation (INO) | payer MEDICARE ==
[~2022-10-06] VITALS: Ht 160 cm; Wt 92.2 kg
[2022-10-06] VITALS (11 sets, daily range): BP systolic 129–185; BP diastolic 58–76
[~2022-10-06 14:20] MED LIST changes: +CELEBREX100 M1 PO; +FLEXERIL5 M1 PO
--- NOTE | 2022-10-06 15:00 | NUR ---
PATIENT SENT OVER BY DR. FIELDS FOR EVALUATION. C/O DIZZINESS AND LIGHTHEADEDNESS.
[2022-10-06 15:32] LABS: BASO% 0.3 % (0-3); HEMOGLOBIN 13.9 g/dl (12.0-16.0); IMMATURE GRANULOCYTES 0.4 % (0.0-5.0); LYMPH% 24.2 % (15-41); MEAN CELL VOLUME 91.8 fL CALC (80.0-100.0); MEAN CORPUSCULAR HGB 28.4 pG CALC (26.0-32.0); MEAN CORPUSCULAR HGB CONC 30.9 g/dL CAL (32.0-36.0); MONO% 7.2 % (2-13); NEUT# 7.14 thou/uL (2.00-7.15); NEUT% 67.9 % (42-76); RED BLOOD COUNT 4.9 mill/uL (4.20-5.60)
--- NOTE | 2022-10-06 15:49 | NUR ---
PATIENT RESTING. NO DISTRESS. V/S STABLE.
[2022-10-06 15:54] LABS: ALBUMIN 4.7 g/dL (3.2-5.0); ALKALINE PHOSPHATASE 109 u/l (38-126); ANION GAP 11 (6-22 (CALC)); BILIRUBIN, TOTAL 0.3 mg/dL (0.02-1.3); BUN 14 mg/dL (8-23); BUN/CREATININE RATIO 18 (12-20 (CALC)); CARBON DIOXIDE 28 mmol/l (22-30); CHLORIDE 109 mmol/l (95-108); CREATININE 0.8 mg/dL (0.5-1.0); GFR FOR AFR.AMER. > 60 ML/MIN (>=60 (CALC)); GFR OTHER RACES > 60 ML/MIN (>=60 (CALC)); POTASSIUM 3.4 mmol/l (3.5-5.1); SGOT/AST 44 u/l (9-36); SODIUM 144 mmol/l (137-146); TOTAL PROTEIN 8.2 g/dL (6.3-8.2)
[2022-10-06 15:54] LABS: PROTHROMBIN TIME 10.2 SECONDS (9.0-12.5)
[2022-10-06] MEDS ORDERED: CHLORZOXAZON500 MG PO (16:16)
[2022-10-06] MEDS ORDERED: AMBIEN10 MG PO (16:20)
[2022-10-06] MEDS ORDERED: MELOXICAM7.5 MG PO (16:20)
[2022-10-06] MEDS ORDERED: FLEXERIL5 M1 PO (16:21)
[2022-10-06 17:03] LABS: URINE BILIRUBIN - DIPSTICK NEGATIVE (NEGATIVE); URINE BLOOD DIPSTICK NEGATIVE (NEGATIVE); URINE COLOR YELLOW; URINE GLUCOSE - DIPSTICK NEGATIVE (NEGATIVE); URINE KETONE NEGATIVE (NEGATIVE); URINE LEUK ESTERASE NEGATIVE (NEGATIVE); URINE PROTEIN - DIPSTICK NEGATIVE (NEG-TRACE); URINE UROBILINOGEN - DIPSTICK 0.2 E.U./dL (0.2)
[2022-10-06 17:06] LABS: URINE NITRITE - DIPSTICK NEGATIVE (Negative)
--- NOTE | 2022-10-06 21:30 | NUR ---
PT UP TO BR TO VOID WITH ASSIST. NAD.
--- NOTE | 2022-10-06 21:40 | NUR ---
VERBAL REPORT GIVEN TO MED SURG/ TELEMETRY NURSE. PATIENT TAKEN UPSTAIRS.
--- NOTE | 2022-10-06 22:00 | NUR ---
PATIENT ARRIVED VIA WHEELCHAIR ACCOMPANIED BY ED STAFF. PATIENT HAS NO CURRENT COMPLAINTS OF DIZZINESS. ORIENTED TO ROOM AND CALL LIGHT SYSTEM. PLAN OF CARE REVIEWED. MRI CHECKLIST COMPLETED AT THIS TIME. PATIENT STATES SHE HAS SCREWS IN HER NECK, BUT HAS HAD MRI DONE AFTER THESE WERE PRESENT. CALL LIGHT AND BEDSIDE TABLE WITHIN REACH.
[2022-10-07 03:59] VITALS: BP 132/45
--- NOTE | 2022-10-07 04:30 | NUR ---
PATIENT RESTING COMOFORTABLY, NO APPARENT DISTRESS NOTED. RESPIRATIONS EVEN AND UNLABORED. RISE AND FALL OF CHEST NOTED. CALL LIGTH AND BEDSIDE TABLE WITHIN REACH.
[2022-10-07 05:55] LABS: BASO% 0.3 % (0-3); HEMATOCRIT 44.5 % (37.0-47.0); HEMOGLOBIN 13.9 g/dl (12.0-16.0); IMMATURE GRANULOCYTES 0.1 % (0.0-5.0); LYMPH% 29.9 % (15-41); MEAN CELL VOLUME 91.6 fL CALC (80.0-100.0); MEAN CORPUSCULAR HGB 28.6 pG CALC (26.0-32.0); MEAN CORPUSCULAR HGB CONC 31.2 g/dL CAL (32.0-36.0); NEUT# 6.41 thou/uL (2.00-7.15); NEUT% 63.7 % (42-76); RED BLOOD COUNT 4.86 mill/uL (4.20-5.60); RED CELL DISTRI WIDTH 13.7 % (11.5-15.5)
[2022-10-07 06:08] LABS: ALBUMIN 4.3 g/dL (3.2-5.0); ALKALINE PHOSPHATASE 109 u/l (38-126); ANION GAP 12 (6-22 (CALC)); BILIRUBIN, TOTAL 0.3 mg/dL (0.02-1.3); BUN 13 mg/dL (8-23); BUN/CREATININE RATIO 21 (12-20 (CALC)); CARBON DIOXIDE 26 mmol/l (22-30); CHLORIDE 107 mmol/l (95-108); CREATININE 0.6 mg/dL (0.5-1.0); GFR FOR AFR.AMER. > 60 ML/MIN (>=60 (CALC)); GFR OTHER RACES > 60 ML/MIN (>=60 (CALC)); MAGNESIUM 2.3 mg/dL (1.6-2.3); POTASSIUM 3.3 mmol/l (3.5-5.1); SGOT/AST 35 u/l (9-36); SODIUM 142 mmol/l (137-146); TOTAL PROTEIN 7.6 g/dL (6.3-8.2)
[2022-10-07 06:31] VITALS: BP 142/50
[2022-10-07 08:00] VITALS: BP 142/50
--- NOTE | 2022-10-07 08:00 | NUR ---
ALERT AND ORIENTED PATIENT X3. IT IS OBSERVED RESTING IN THE BED. DAUGHTER AT BED SIDE PATIENT CONNECTED TO TELE MONITOR. SINUS RHYTHM AT THE TIME OF THIS NOTE. PATIENT REFERS NO PAIN OR DISCOMFORT AT THIS TIME. THE PATIENT IS EDUCATED AND ORIENTED ABOUT THE NURSING PLAN FOR TODAY AND MEDICATIONS. PATIENT REFERS TO UNDERSTAND. SAFETY AND FALL PRECAUTIONS IN PLACE. CALL LIGHT WITHIN IN REACH.
[2022-10-07 08:30] LABS: CHOLESTEROL HDL RATIO 6.7 (<4.4 (CALC))
[2022-10-07 09:02] LABS: TSH, 3RD GENERATION 3.42 uIU/mL (0.47 - 4.68)
[2022-10-07 11:26] VITALS: BP 154/63
[2022-10-07] MEDS ORDERED: MECLIZINE 2525 MG PO (11:27)
--- NOTE | 2022-10-07 12:00 | NUR ---
PATIENT STABLE AT THE TIME OF THIS NOTE. IT IS OBSERVED RESTING IN THE BED. PATIENT CONNECTED TO TELE MONITOR. SINUS RHYTHM AT THE TIME OF THIS NOTE. PATIENT REFERS NO PAIN OR DISCOMFORT. THE PATIENT IS EDUCATED AND ORIENTED ABOUT THE NURSING PLAN FOR TODAY AND MEDICATIONS. PATIENT REFERS TO UNDERSTAND.
--- NOTE | 2022-10-07 12:00 | NUR ---
Discharge instructions given. Patient verbalizes understanding of same. Discharged in condition via Wheelchair to Home with staff. All belongings sent with pt.
[2022-10-07 12:37] VITALS: BP 154/63
== END 2022-10-07 13:52 | disposition home or self-care (01) ==
LOC: ED 14:20 → ED-I 15:35 → ED 18:48 → MS2 18:49
PROVIDERS: Family Medicine; Nurse Practitioner Family; ADMIT Internal Medicine; ATTEND Internal Medicine
DX: R42 Dizziness and giddiness (principal); H53.8 Other visual disturbances; I10 Essential (primary) hypertension; J43.9 Emphysema, unspecified; E78.00 Pure hypercholesterolemia, unspecified; E03.9 Hypothyroidism, unspecified; M54.12 Radiculopathy, cervical region; F41.9 Anxiety disorder, unspecified; F32.9 Major depressive disorder, single episode, unspecified; G47.30 Sleep apnea, unspecified; F17.210 Nicotine dependence, cigarettes, uncomplicated
CPT/HCPCS: Q9967

== ENCOUNTER 2022-12-24 19:27 | Observation (INO) | payer MEDICARE ==
[2022-12-24] VITALS (16 sets, daily range): BP systolic 138–187; BP diastolic 53–113
[~2022-12-24] VITALS: Ht 160 cm; Wt 94.0 kg
[~2022-12-24 19:27] MED LIST changes: +AMBIEN10 MG PO; +CHLORZOXAZON500 MG PO; +MECLIZINE 2525 MG PO; +MELOXICAM7.5 MG PO
--- NOTE | 2022-12-24 19:45 | NUR ---
PATIENT TO ROOM 13 VIA WHEELCHAIR. UNDRESSED INTO A GOWN. PLACED ON MONITOR. TRIAGE COMPLETED AT BEDSIDE.
--- NOTE | 2022-12-24 20:50 | NUR ---
LABS DRAWN, AWAITING XRAY. PATIENT PLACED ON 2L O2 VIA NC PER MD.
--- NOTE | 2022-12-24 21:02 | NUR ---
RESPIRATORY AT BEDSIDE FOR NEB TREATMENT.
[2022-12-24 21:11] LABS: BASO% 0.1 % (0-3); IMMATURE GRANULOCYTES 0.3 % (0.0-5.0); LYMPH% 18.8 % (15-41); MEAN CELL VOLUME 91.2 fL CALC (80.0-100.0); MEAN CORPUSCULAR HGB 28.3 pG CALC (26.0-32.0); MONO% 5.8 % (2-13); NEUT# 8.44 thou/uL (2.00-7.15); RED BLOOD COUNT 4.21 mill/uL (4.20-5.60); RED CELL DISTRI WIDTH 14.2 % (11.5-15.5)
[2022-12-24 21:12] LABS: HEMATOCRIT 38.4 % (37.0-47.0); HEMOGLOBIN 11.9 g/dl (12.0-16.0)
[2022-12-24 21:22] LABS: ALBUMIN 4.3 g/dL (3.2-5.0); ALKALINE PHOSPHATASE 87 u/l (38-126); ANION GAP 13 (6-22 (CALC)); BILIRUBIN, TOTAL 0.3 mg/dL (0.02-1.3); BUN 20 mg/dL (8-23); BUN/CREATININE RATIO 30 (12-20 (CALC)); CARBON DIOXIDE 25 mmol/l (22-30); CHLORIDE 105 mmol/l (95-108); CREATININE 0.7 mg/dL (0.5-1.0); GFR FOR AFR.AMER. > 60 ML/MIN (>=60 (CALC)); GFR OTHER RACES > 60 ML/MIN (>=60 (CALC)); POTASSIUM 3.3 mmol/l (3.5-5.1); SGOT/AST 32 u/l (9-36); SODIUM 140 mmol/l (137-146); TOTAL PROTEIN 7.8 g/dL (6.3-8.2)
--- NOTE | 2022-12-24 21:58 | NUR ---
MD AT BEDSIDE TO DISCUSS ALL RESULTS AND PLANS TO ADMIT.
[2022-12-24] MEDS ORDERED: TIZANIDINE HYDRO2 M1 (23:08)
[2022-12-24] MEDS ORDERED: COZAAR25 MG PO (23:11)
[2022-12-24] MEDS ORDERED: PREDNISONE20 MG PO (23:12)
[2022-12-24] MEDS ORDERED: DOXYCYCLINE100 MG PO (23:14)
--- NOTE | 2022-12-24 23:27 | NUR ---
REPORT CALLED TO SARITA LUBIN ON MS[facility], PATIENT READIED FOR TRANSPORT ON TELE.
--- NOTE | 2022-12-25 01:31 | NUR ---
PT ARRIVED TO UNIT FROM ED AT 2340. ALERT AND ORIENTED. SOB ON EXERTION. ON 02 VIA NC AT 2 LITERS. ADMISSION ASSESMENT COMPLETED. ON TELE NSR. BED LOCKED. CALL LIGHT IN [facility]
[2022-12-25 03:13] VITALS: BP 145/57
[2022-12-25 05:53] VITALS: BP 145/57
[2022-12-25 06:10] VITALS: BP 124/41
--- NOTE | 2022-12-25 07:00 | NUR ---
RECEIVED BEDSIDE REPORT FROM SARITA SORIANO. PT RESTING IN BED WITH EYES CLOSED. ALL SAFETY MEASURES IN PLACE. VSS. NO NEEDS AT THIS TIME.
[2022-12-25 10:46] VITALS: BP 141/56
[2022-12-25 15:00] VITALS: BP 131/59
--- NOTE | 2022-12-25 15:44 | NUR ---
PT HAVING SOME EPISTAXIS FROM NASAL CANNULA. ADDED HUMIDIFICATION TO PT'S OXYGEN. BLEEDING STOPPED. PT IN AGREEMENT WITH PLAN.
--- NOTE | 2022-12-25 19:30 | NUR ---
PT IN BED. PT REPORTS SOB WITH MOVEMENT. PT ON O2 AT 2L HUMITIFY. PT STATES HAD A NOSE BLEED IN THE DAY SHIFT. NO BLEEDING AT THIS TIME. PT HAS A 22G IV TO RFA. PATENT AND FLUSES WELL. NO NEEDS OR CONCERNS VOICED AT THIS TIME. CALL LIGHT IN REACH AND BED IN LOWEST POSITION.
--- NOTE | 2022-12-25 22:00 | NUR ---
PT STATES WHY SHE IS NOT GETTING HER NORMAL HOME MEDS THE SHE NORMALLY TAKES. I EXPLAIN THAT THE DOCTOR HAS REVIEW AND HE ORDERED TO WHICH MEDS WILL BE CONTINUE DURING HOSPITAL STAY. PT STATES THAT SHE NEEDS THOSE MEDS EVERY DAY. SETTER HELPER TALK PT AND REVIEW HOME MEDS. SETTER HELPER CALL THE DR AND OBTAIN NEW ORDERS AND DR WILL REVIE MEDS IN THE MORNING.
[2022-12-26] VITALS (8 sets, daily range): BP systolic 138–163; BP diastolic 53–64
--- NOTE | 2022-12-26 00:50 | NUR ---
PT IN BED AWAKE NO NEEDS OR CONCERNS VOICED. NO S/S OF DISTRESS NOTED. CALL LIGHT IN REACH AND BED IN LOWEST POSITION
--- NOTE | 2022-12-26 04:40 | NUR ---
PT IN BED NO S/S OF DISTRESS NOTED. BREATHING IS EVEN AND UNLABORED. CALL LIGHT IN REACH AND BED IN LOWEST POSITION.
--- NOTE | 2022-12-26 07:00 | NUR ---
RECEIVED REPORT FROM MAXI WHEATLEY. PT IN BED, RESTING WITH EYES CLOSED. ALL SAFETY MEASURES IN PLACE. VSS. NO NEEDS AT THIS TIME.
--- NOTE | 2022-12-26 21:10 | NUR ---
PT IN BED AWAKE WATCHING TV. SHIFT ASSESSEMENT COMPLETED. PT REPORTS A HEADACHE PT MEDICATED PER JUL. PT REPORTS BURNING WITH IV ATB ADMINISTRATION AND REQUEST ANOTHER IV. HONING MACHINE OPERATOR SEMIAUTOMATIC PLACE A NEW IV. PT BRATHING IS IMPROVEVING PT STATE FEELING LESS SOB WHEM AMBULATION. BREATHING IS EVEN AND UNLABORED. NO S/S OF DISTRESS NOTED. CALL LIGHT IN REACH AND BED IN LOWEST POSITION.
--- NOTE | 2022-12-27 00:28 | NUR ---
PT IN BED DENIES PAIN OR DISCOMFRT. NO NEEDS OR CONCERN VOICED. CALL LIGHT IN REACH AND BED IN LOWEST POSITION.
[2022-12-27 04:00] VITALS: BP 143/54
--- NOTE | 2022-12-27 04:15 | NUR ---
PT IN BED RESTING WITH EYES CLOSED BREATHING EVEN AND UNLABORED. NO S/S OF DISTRESS NOTED CALL LIGHT IN REACH AND BED IN LOWEST POSITION.
[2022-12-27 04:27] VITALS: BP 143/54
[2022-12-27 06:05] LABS: HEMATOCRIT 36.8 % (37.0-47.0); HEMOGLOBIN 11.6 g/dl (12.0-16.0); MEAN CELL VOLUME 91.8 fL CALC (80.0-100.0); MEAN CORPUSCULAR HGB 28.9 pG CALC (26.0-32.0); MEAN CORPUSCULAR HGB CONC 31.5 g/dL CAL (32.0-36.0); RED BLOOD COUNT 4.01 mill/uL (4.20-5.60); RED CELL DISTRI WIDTH 14.5 % (11.5-15.5)
[2022-12-27 06:23] LABS: ALKALINE PHOSPHATASE 84 u/l (38-126); ANION GAP 12 (6-22 (CALC)); BILIRUBIN, TOTAL 0.3 mg/dL (0.02-1.3); BUN 21 mg/dL (8-23); BUN/CREATININE RATIO 34 (12-20 (CALC)); CARBON DIOXIDE 30 mmol/l (22-30); CHLORIDE 102 mmol/l (95-108); CREATININE 0.6 mg/dL (0.5-1.0); GFR FOR AFR.AMER. > 60 ML/MIN (>=60 (CALC)); GFR OTHER RACES > 60 ML/MIN (>=60 (CALC)); POTASSIUM 3.9 mmol/l (3.5-5.1); SGOT/AST 28 u/l (9-36); SODIUM 140 mmol/l (137-146); TOTAL PROTEIN 6.9 g/dL (6.3-8.2)
--- NOTE | 2022-12-27 08:00 | NUR ---
PATIENT RESTING IN BED EATING BREAKFAST REPORTING FEELING BETTER. PATIENT ON ROOM AIR LUNG SOUNDS CLEAR WITH NO EDEMA BLE. PATIENT PROVIDED WITH STOOL SOFTNER SINCE SHE REPORTS NOT HAVING A BM SINCE 12/24. WILL CONTINUE TO MONITOR.
--- NOTE | 2022-12-27 12:14 | NUR ---
PATIENT RESTING FEELING MUCH BETTER BUT STILL SOB WITH EXCERTION. WILL CONTINUE TO MONITOR.
[2022-12-27] MEDS ORDERED: PREDNISONE10 MG PO (12:43)
[2022-12-27] MEDS ORDERED: OMNICEF300 MG PO (12:44)
[2022-12-27] MEDS ORDERED: IPRATROPIU0.5 MG/3 M IN (12:48)
== END 2022-12-27 14:18 | disposition home or self-care (01) ==
LOC: ED 19:27 → ED-I 22:00 → ED 22:29 → MS2 22:30
PROVIDERS: Emergency Medicine; ADMIT Student in an Organized Health Care Education/Training Program; ATTEND Student in an Organized Health Care Education/Training Program
DX: J43.9 Emphysema, unspecified (principal); R09.02 Hypoxemia; I10 Essential (primary) hypertension; F41.9 Anxiety disorder, unspecified; F32.A Depression, unspecified; E78.00 Pure hypercholesterolemia, unspecified; G47.30 Sleep apnea, unspecified; E03.9 Hypothyroidism, unspecified; F17.210 Nicotine dependence, cigarettes, uncomplicated; T48.996A Underdosing of other agents primarily acting on the respiratory system, initial encounter; Z91.128 Patient's intentional underdosing of medication regimen for other reason

== ENCOUNTER 2023-07-03 07:53 | Emergency (ER) | payer MEDICARE ==
[2023-07-03] VITALS (10 sets, daily range): BP systolic 135–173; BP diastolic 52–78
[~2023-07-03] VITALS: Ht 160 cm; Wt 87.4 kg
[~2023-07-03 07:53] MED LIST changes: +COZAAR25 MG PO; +DOXY-CAPS100 MG PO; +DOXYCYCLINE100 MG PO; +IPRATROPIU0.5 MG/3 M IN; +OMNICEF300 MG PO; +PREDNISONE20 MG PO; +TIZANIDINE HYDRO2 M1
[2023-07-03] MEDS ORDERED: IPRATROPIUM-Albuterol 0.5MG-2.5MG/3 ML NEB ONE (08:45)
[2023-07-03] MEDS ORDERED: methylPREDNISolone SODIUM SUCC 125 MG/2 ML SDV IV ONE (08:45)
[2023-07-03] MEDS ORDERED: guaiFENesin-CODEINE 200-20 MG/10 ML UDC PO ONE (08:50)
[2023-07-03] MEDS ORDERED: BENZONATATE 200 MG/CAP PO ONE (08:50)
[2023-07-03 08:52] LABS: BASO% 0.1 % (0-3); HEMATOCRIT 41.4 % (37.0-47.0); HEMOGLOBIN 13.2 g/dl (12.0-16.0); IMMATURE GRANULOCYTES 0.2 % (0.0-5.0); LYMPH% 11.4 % (15-41); MEAN CELL VOLUME 93.7 fL CALC (80.0-100.0); MEAN CORPUSCULAR HGB 29.9 pG CALC (26.0-32.0); MEAN CORPUSCULAR HGB CONC 31.9 g/dL CAL (32.0-36.0); MONO% 5.2 % (2-13); NEUT# 7.92 thou/uL (2.00-7.15); NEUT% 83.1 % (42-76); RED BLOOD COUNT 4.42 mill/uL (4.20-5.60)
[2023-07-03 08:57] LABS: ALBUMIN 4.4 g/dL (3.2-5.0); ALKALINE PHOSPHATASE 121 u/l (38-126); ANION GAP 11 (6-22 (CALC)); BILIRUBIN, TOTAL 0.5 mg/dL (0.02-1.3); BUN 11 mg/dL (8-23); BUN/CREATININE RATIO 15 (12-20 (CALC)); CARBON DIOXIDE 30 mmol/l (22-30); CHLORIDE 105 mmol/l (95-108); CREATININE 0.7 mg/dL (0.5-1.0); GFR FOR AFR.AMER. > 60 ML/MIN (>=60 (CALC)); GFR OTHER RACES > 60 ML/MIN (>=60 (CALC)); POTASSIUM 3.6 mmol/l (3.5-5.1); SGOT/AST 33 u/l (9-36); SODIUM 142 mmol/l (137-146); TOTAL PROTEIN 7.1 g/dL (6.3-8.2)
[2023-07-03] MEDS ORDERED: ONDANSETRON HCl 4 MG/2 ML SDV IV ONE (09:35)
[2023-07-03] MEDS ORDERED: ACETAMINOPHEN 500 MG TAB PO ONE (10:20)
[2023-07-03] MEDS ORDERED: PREDNISONE50 MG PO (11:20)
[2023-07-03] MEDS ORDERED: MORPHINE SULFATE 4 MG/ML VIAL IV ONE (11:20)
[2023-07-03] MEDS ORDERED: BENZONATATE200 MG PO (11:20)
[2023-07-03] MEDS ORDERED: PAXLOVID PO (11:20)
== END 2023-07-03 12:38 | disposition home or self-care (01) ==
LOC: ED 07:53
PROVIDERS: Emergency Medicine
DX: U07.1 COVID-19 (principal); R06.02 Shortness of breath; R05.9 Cough, unspecified; I10 Essential (primary) hypertension; J44.9 Chronic obstructive pulmonary disease, unspecified; F41.9 Anxiety disorder, unspecified

== ENCOUNTER 2023-07-09 04:00 | Emergency (ER) | payer MEDICARE ==
[~2023-07-09] VITALS: Ht 160 cm; Wt 87.5 kg
[~2023-07-09 04:00] MED LIST changes: +BENZONATATE200 MG PO; +PAXLOVID PO
[2023-07-09] MEDS ORDERED: NAPROXEN 250 MG/TAB PO ONE (04:50)
[2023-07-09] MEDS ORDERED: ACETAMINOPHEN 500 MG TAB PO ONE (04:50)
[2023-07-09] MEDS ORDERED: OXYMETAZOLINE HCL 15 ML/BTL ONE (04:55)
[2023-07-09 06:34] VITALS: BP 171/61
== END 2023-07-09 06:34 | disposition home or self-care (01) ==
LOC: ED 04:00
DX: U07.1 COVID-19 (principal); J06.9 Acute upper respiratory infection, unspecified; I10 Essential (primary) hypertension; J44.9 Chronic obstructive pulmonary disease, unspecified; F41.9 Anxiety disorder, unspecified

== ENCOUNTER 2023-11-17 19:25 | Emergency (ER) | payer MEDICARE ==
[~2023-11-17] VITALS: Ht 160 cm; Wt 95.0 kg
[2023-11-17] MEDS ORDERED: LORazepam 2 MG/ML IM ONE (19:55)
[2023-11-17] MEDS ORDERED: KETOROLAC TROMETHAMINE 15 MG/ML SDV IM ONE (19:55)
[2023-11-17] MEDS ORDERED: DEXAMETHASONE 2 MG/TAB TAB PO ONE (19:55)
[2023-11-17] MEDS ORDERED: traMADol HCL 50 MG/TAB PO ONE (22:40)
[2023-11-18] MEDS ORDERED: LORazepam 2 MG/ML IM ONE (01:10)
[2023-11-18] MEDS ORDERED: METHOCARBAMOL 500 MG/TAB PO ONE (02:45)
[2023-11-18] MEDS ORDERED: METHOCARBAMOL500 MG PO (02:45)
[2023-11-18 03:14] VITALS: BP 139/61
[2023-11-19] MEDS ORDERED: PREDNISONE10 MG PO (16:31)
[2023-11-19] MEDS ORDERED: NAPROXEN500 MG PO (16:31)
== END 2023-11-18 03:20 | disposition home or self-care (01) ==
LOC: ED 19:25
DX: M62.830 Muscle spasm of back (principal); I10 Essential (primary) hypertension; J44.9 Chronic obstructive pulmonary disease, unspecified; G47.30 Sleep apnea, unspecified; F41.9 Anxiety disorder, unspecified
CPT/HCPCS: J2060

== ENCOUNTER 2023-11-19 13:40 | Emergency (ER) | payer MEDICARE ==
[2023-11-19] VITALS (8 sets, daily range): BP systolic 137–158; BP diastolic 55–93
[~2023-11-19] VITALS: Ht 160 cm; Wt 95.2 kg
[~2023-11-19 13:40] MED LIST changes: +METHOCARBAMOL500 MG PO
[2023-11-19] MEDS ORDERED: predniSONE 20 MG/TAB PO ONE (13:50)
[2023-11-19] MEDS ORDERED: KETOROLAC TROMETHAMINE 30 MG/ML SDV IM ONE (13:50)
[2023-11-19] MEDS ORDERED: diazePAM 10 MG/2 ML VIAL IM ONE ×2 (13:50→13:55)
[2023-11-19] MEDS ORDERED: PREDNISONE10 MG PO (16:31)
[2023-11-19] MEDS ORDERED: NAPROXEN500 MG PO (16:31)
== END 2023-11-19 16:38 | disposition home or self-care (01) ==
LOC: ED 13:40
DX: M54.50 Low back pain, unspecified (principal); M47.26 Other spondylosis with radiculopathy, lumbar region; I10 Essential (primary) hypertension; J44.9 Chronic obstructive pulmonary disease, unspecified; G47.30 Sleep apnea, unspecified; E03.9 Hypothyroidism, unspecified; F41.9 Anxiety disorder, unspecified; F32.A Depression, unspecified; Z91.81 History of falling

== ENCOUNTER 2024-04-14 19:43 | Emergency (ER) | payer MEDICARE ==
[~2024-04-14] VITALS: Ht 160 cm; Wt 96.0 kg
[~2024-04-14 19:43] MED LIST changes: +ABILIFY10 MG PO; +BUSPAR10 MG PO; +CLARITIN10 M1 PO; +LORTAB 5/3255 MG PO; +MOTRIN800 MG PO; +NAPROXEN500 MG PO
[2024-04-14] MEDS ORDERED: MYSOLINE50 M1 PO (19:53)
[2024-04-14 20:07] VITALS: BP 95/79
[2024-04-14] MEDS ORDERED: SODIUM CHLORIDE 0.9% 1,000 ML IV ONE (20:15)
[2024-04-14] MEDS ORDERED: PROMETHAZINE HCL 25 MG/ML AMP IV ONE (20:15)
[2024-04-14] MEDS ORDERED: KETOROLAC TROMETHAMINE 30 MG/ML SDV IV ONE (20:15)
[2024-04-14] MEDS ORDERED: ISOVUE-300 (Iopamidol) 100 ML SDV IV ONE (20:15)
[2024-04-14 20:53] LABS: BASO% 0.3 % (0-3); HEMATOCRIT 29.9 % (37.0-47.0); HEMOGLOBIN 9.1 g/dl (12.0-16.0); IMMATURE GRANULOCYTES 0.1 % (0.0-5.0); LYMPH% 26.5 % (15-41); MEAN CELL VOLUME 88.7 fL CALC (80.0-100.0); MEAN CORPUSCULAR HGB CONC 30.4 g/dL CAL (32.0-36.0); MONO% 5.7 % (2-13); NEUT# 5.21 thou/uL (2.00-7.15); NEUT% 67.4 % (42-76); RED BLOOD COUNT 3.37 mill/uL (4.20-5.60); RED CELL DISTRI WIDTH 14.1 % (11.5-15.5)
[2024-04-14 21:06] LABS: CREATININE 0.8 mg/dL (0.5-1.0); POTASSIUM 3.6 mmol/l (3.5-5.1)
[2024-04-14 21:10] LABS: ALBUMIN 3.8 g/dL (3.2-5.0); BILIRUBIN, TOTAL 0.2 mg/dL (0.02-1.3); TOTAL PROTEIN 6.7 g/dL (6.3-8.2)
[2024-04-14 21:15] LABS: ACT PARTIAL THROMBO TIME 26.3 SECONDS (20.0-32.5); PROTHROMBIN TIME 10.8 SECONDS (9.0-12.5)
[2024-04-14 21:52] VITALS: BP 119/66
[2024-04-14] MEDS ORDERED: LACTATED RINGER'S 1,000 ML IV ONE (22:45)
[2024-04-14 23:32] LABS: URINE BILIRUBIN - DIPSTICK Negative (NEGATIVE); URINE BLOOD DIPSTICK Negative (NEGATIVE); URINE COLOR Yellow; URINE GLUCOSE - DIPSTICK Negative (NEGATIVE); URINE KETONE Negative (NEGATIVE); URINE LEUK ESTERASE Negative (NEGATIVE); URINE NITRITE - DIPSTICK Negative (Negative); URINE PH 5.5 (4.5-8.0); URINE PROTEIN - DIPSTICK Negative (NEG-TRACE); URINE SPECIFIC GRAVITY <=1.005; URINE UROBILINOGEN - DIPSTICK 0.2 E.U./dL (0.2)
[2024-04-14 23:57] VITALS: BP 119/66
== END 2024-04-14 23:59 | disposition home or self-care (01) ==
LOC: ED 19:43
PROVIDERS: Family Medicine
DX: K62.5 Hemorrhage of anus and rectum (principal); I10 Essential (primary) hypertension; J44.9 Chronic obstructive pulmonary disease, unspecified; F41.9 Anxiety disorder, unspecified; E03.9 Hypothyroidism, unspecified; F32.A Depression, unspecified; Z86.0100 Personal history of colon polyps, unspecified
CPT/HCPCS: Q9967

== ENCOUNTER 2024-05-10 20:26 | Emergency (ER) | payer MEDICARE ==
[~2024-05-10] VITALS: Ht 160 cm; Wt 98.0 kg
[~2024-05-10 20:26] MED LIST changes: +MYSOLINE50 M1 PO
[2024-05-10 20:40] VITALS: BP 153/55
[2024-05-10] MEDS ORDERED: KETOROLAC TROMETHAMINE 30 MG/ML SDV IV ONE (20:45)
[2024-05-10] MEDS ORDERED: ASPIRIN 81 MG/TAB PO ONE (20:45)
[2024-05-10] MEDS ORDERED: ACETAMINOPHEN 500 MG TAB PO ONE (20:45)
[2024-05-10 21:11] LABS: BASO% 0.2 % (0-3); HEMATOCRIT 32.3 % (37.0-47.0); HEMOGLOBIN 9.5 g/dl (12.0-16.0); IMMATURE GRANULOCYTES 0.2 % (0.0-5.0); LYMPH% 21.8 % (15-41); MEAN CELL VOLUME 85.2 fL CALC (80.0-100.0); MEAN CORPUSCULAR HGB 25.1 pG CALC (26.0-32.0); MEAN CORPUSCULAR HGB CONC 29.4 g/dL CAL (32.0-36.0); MONO% 6.7 % (2-13); NEUT# 7.19 thou/uL (2.00-7.15); NEUT% 71.1 % (42-76); RED BLOOD COUNT 3.79 mill/uL (4.20-5.60); RED CELL DISTRI WIDTH 14.8 % (11.5-15.5)
[2024-05-10 21:17] VITALS: BP 167/115
[2024-05-10 21:22] LABS: ALBUMIN 4.4 g/dL (3.2-5.0); ALKALINE PHOSPHATASE 102 u/l (38-126); ANION GAP 15 (6-22 (CALC)); BUN 15 mg/dL (8-23); BUN/CREATININE RATIO 21 (12-20 (CALC)); CARBON DIOXIDE 26 mmol/l (22-30); CHLORIDE 105 mmol/l (95-108); CREATININE 0.7 mg/dL (0.5-1.0); ESTIMATED GFR 98 ML/MIN (>=90 (CALC)); LIPASE 56 u/l (23-300); POTASSIUM 3.9 mmol/l (3.5-5.1); SGOT/AST 40 u/l (9-36); SODIUM 142 mmol/l (137-146); TOTAL PROTEIN 7.6 g/dL (6.3-8.2)
[2024-05-10 21:24] LABS: BILIRUBIN, TOTAL 0.4 mg/dL (0.02-1.3)
[2024-05-10 21:33] LABS: ACT PARTIAL THROMBO TIME 26.3 SECONDS (20.0-32.5); PROTHROMBIN TIME 10.9 SECONDS (9.0-12.5)
[2024-05-10 22:06] VITALS: BP 154/84
== END 2024-05-10 22:06 | disposition home or self-care (01) ==
LOC: ED 20:26
PROVIDERS: Family Medicine
DX: R07.89 Other chest pain (principal); I10 Essential (primary) hypertension; J44.9 Chronic obstructive pulmonary disease, unspecified; G47.30 Sleep apnea, unspecified; E03.9 Hypothyroidism, unspecified; F41.9 Anxiety disorder, unspecified; F32.A Depression, unspecified

== ENCOUNTER 2024-05-31 23:45 | Emergency (ER) | payer MEDICARE ==
[~2024-05-31] VITALS: Ht 160 cm; Wt 95.0 kg
[2024-05-31 23:51] VITALS: BP 190/78
[2024-06-01 00:01] VITALS: BP 174/66
[2024-06-01] MEDS ORDERED: METOCLOPRAMIDE HCL 10 MG/2 ML SDV IV ONE (00:05)
[2024-06-01] MEDS ORDERED: DiphenhydrAMINE HCL 50 MG/ML SDV IV ONE (00:05)
[2024-06-01 00:40] VITALS: BP 174/66
[2024-06-01] MEDS ORDERED: SODIUM CHLORIDE 0.9% 1,000 ML IV ONE (00:40)
[2024-06-01] MEDS ORDERED: SUMAtriptan SUCCINATE 6 MG/0.5 ML SDV SC ONE (00:40)
[2024-06-01 00:44] LABS: BASO% 0.2 % (0-3); HEMATOCRIT 32.9 % (37.0-47.0); HEMOGLOBIN 9.5 g/dl (12.0-16.0); IMMATURE GRANULOCYTES 0.3 % (0.0-5.0); LYMPH% 10.7 % (15-41); MEAN CELL VOLUME 81.2 fL CALC (80.0-100.0); MEAN CORPUSCULAR HGB 23.5 pG CALC (26.0-32.0); MEAN CORPUSCULAR HGB CONC 28.9 g/dL CAL (32.0-36.0); MONO% 3.3 % (2-13); NEUT# 8.37 thou/uL (2.00-7.15); NEUT% 85.5 % (42-76); RED BLOOD COUNT 4.05 mill/uL (4.20-5.60); RED CELL DISTRI WIDTH 15.2 % (11.5-15.5); URINE BILIRUBIN - DIPSTICK Negative (NEGATIVE); URINE BLOOD DIPSTICK Negative (NEGATIVE); URINE CLARITY Clear; URINE GLUCOSE - DIPSTICK Negative (NEGATIVE); URINE KETONE Negative (NEGATIVE); URINE LEUK ESTERASE Negative (Negative); URINE NITRITE - DIPSTICK Negative (Negative); URINE PH 6.5 (4.5-8.0); URINE PROTEIN - DIPSTICK Trace mg/dL (NEG-TRACE); URINE UROBILINOGEN - DIPSTICK 0.2 E.U./dL (0.2)
[2024-06-01 00:54] LABS: ALBUMIN 4.4 g/dL (3.2-5.0); ALKALINE PHOSPHATASE 115 u/l (38-126); BILIRUBIN, TOTAL 0.5 mg/dL (0.02-1.3); BUN 14 mg/dL (8-23); BUN/CREATININE RATIO 22 (12-20 (CALC)); CARBON DIOXIDE 25 mmol/l (22-30); CHLORIDE 102 mmol/l (95-108); CREATININE 0.6 mg/dL (0.5-1.0); ESTIMATED GFR 101 ML/MIN (>=90 (CALC)); SGOT/AST 45 u/l (9-36); SODIUM 137 mmol/l (137-146); TOTAL PROTEIN 7.9 g/dL (6.3-8.2)
[2024-06-01 00:55] LABS: URINE COLOR Yellow
[2024-06-01] MEDS ORDERED: LEXAPRO20 MG PO (00:56)
[2024-06-01 00:57] LABS: ANION GAP 14 (6-22 (CALC)); POTASSIUM 4.2 mmol/l (3.5-5.1)
[2024-06-01] MEDS ORDERED: KLONOPIN0.5 MG PO (00:57)
[2024-06-01 00:58] LABS: PROTHROMBIN TIME 10.9 SECONDS (9.0-12.5)
[2024-06-01] MEDS ORDERED: ZITHROMAX500 MG PO (00:58)
[2024-06-01] MEDS ORDERED: METHYLPRED4 MG PO (00:59)
[2024-06-01] MEDS ORDERED: AZELASTINE HCL0.1 % (00:59)
[2024-06-01 01:01] VITALS: BP 158/63
[2024-06-01 01:33] VITALS: BP 190/74
[2024-06-01] MEDS ORDERED: IMITREX25 MG PO (02:06)
[2024-06-01 02:33] VITALS: BP 146/78
== END 2024-06-01 02:33 | disposition home or self-care (01) ==
LOC: ED 23:45
PROVIDERS: Emergency Medicine
DX: G43.909 Migraine, unspecified, not intractable, without status migrainosus (principal); I10 Essential (primary) hypertension; J44.9 Chronic obstructive pulmonary disease, unspecified; E03.9 Hypothyroidism, unspecified; F41.9 Anxiety disorder, unspecified; G47.30 Sleep apnea, unspecified; F32.A Depression, unspecified; Z20.822 Contact with and (suspected) exposure to COVID-19
CPT/HCPCS: J1100; J1200; J2765; J3030

== ENCOUNTER 2024-07-02 08:14 | Day surgery (SDC) | payer MEDICARE ==
[~2024-07-02] VITALS: Ht 160 cm; Wt 97.1 kg
[~2024-07-02 08:14] MED LIST changes: +AZELASTINE HCL0.1 %; +CLONIDINE0.2 MG PO; +IMITREX25 MG PO; +KLONOPIN0.5 MG PO; +LEXAPRO20 MG PO; +METHYLPRED4 MG PO; +ZITHROMAX500 MG PO
[2024-07-02] MEDS ORDERED: FAMOTIDINE 10MG/ML 2ML SDV IV ONE (08:37)
[2024-07-02] MEDS ORDERED: SODIUM CHLORIDE 0.9% 1,000 ML IV ONE (08:37)
[2024-07-02] MEDS ORDERED: GLYCOPYRROLATE 0.2 MG/ML IV ONE (10:32)
[2024-07-02] MEDS ORDERED: LIDOCAINE HCL 2% 2ML SDV IV ONE (10:32)
[2024-07-02] MEDS ORDERED: PROPOFOL 200 MG/20 ML VIAL IV ONE (10:32)
[2024-07-02 10:44] VITALS: BP 152/69
== END 2024-07-02 10:58 | disposition home or self-care (01) ==
LOC: ORM 08:14
PROVIDERS: ATTEND Surgery
PROC: 0DBE8ZX Excision of Large Intestine, Via Natural or Artificial Opening Endoscopic, Diagnostic (ICD-10-PCS; principal; 2024-07-02)
DX: K63.89 Other specified diseases of intestine (principal); K57.30 Diverticulosis of large intestine without perforation or abscess without bleeding; K64.8 Other hemorrhoids; J43.9 Emphysema, unspecified; I10 Essential (primary) hypertension; E03.9 Hypothyroidism, unspecified; E78.00 Pure hypercholesterolemia, unspecified; F17.210 Nicotine dependence, cigarettes, uncomplicated; Z90.49 Acquired absence of other specified parts of digestive tract
CPT/HCPCS: J1596